=== PATIENT | male | born 1960 | race Caucasian/White ===

== ENCOUNTER 2017-02-09 17:21 | Emergency (ER) | payer SELFPAY ==
[~2017-02-09] VITALS: Ht 182.9 cm; Wt 80.0 kg
[~2017-02-09 17:21] MED LIST: AMOXICILLIN 8751 TAB PO; NORCO 325 MG-7.1 TAB PO
[2017-02-09 17:34] VITALS: TEMP 99
[2017-02-09] MEDS ORDERED: CEPHALEXIN500 M1 PO (18:56)
[2017-02-09] MEDS ORDERED: NORCO 325 MG-51 TAB PO (18:56)
[2017-02-09 18:58] LABS: HEMATOCRIT 44.3 % (42.0-52.0); HEMOGLOBIN 15.1 g/dl (13.5-18.0); MEAN CELL VOLUME 83 fl (80.0-100.0); MEAN CORPUSCULAR HEMOGLOBIN 28 pg (27.0-31.0); MEAN CORPUSCULAR HGB CONC 34 g/dl (33.0-37.0); MEAN PLATELET VOLUME 10.2 fl (7.4-10.4); PLATELET COUNT 268 K/mm3 (130-400); RED BLOOD COUNT 5.36 M/mm3 (4.20-5.60); REDCELL DISTRIBUTION WIDTH-CV 13.2 % (11.5-14.5); WHITE BLOOD COUNT 12.6 K/mm3 (4.8-10.8)
[2017-02-09 18:59] LABS: ADD PATHOLOGY DIFF REVIEW NO
[2017-02-09 19:06] LABS: ADJUSTED CALCIUM 8.1 mg/dL (8.4-10.2); ALBUMIN 4.9 gm/dL (3.5-5.0); CALCIUM 8.8 mg/dL (8.4-10.2); CREATININE, serum 0.64 mg/dL (0.66-1.25); POTASSIUM 3.4 mmol/L (3.4-5.0); TOTAL PROTEIN 8.3 gm/dL (6.4-8.2)
[2017-02-09 19:17] LABS: BAND 3 % (0-10); BASOPHIL 1 % (0-2); NEUTROPHILS 80 % (42.0-75.2); TOTAL CELLS COUNTED 100
[2017-02-09 19:19] LABS: PLATELET ESTIMATE NORMAL (NORMAL)
[2017-02-09 20:17] VITALS: BP 168/78; PULSE 78
== END 2017-02-09 20:20 | disposition home or self-care (01) ==
LOC: COL.ER 17:21
PROVIDERS: Emergency Medicine
DX: S62.391A Other fracture of second metacarpal bone, left hand, initial encounter for closed fracture (principal); S92.425A Nondisplaced fracture of distal phalanx of left great toe, initial encounter for closed fracture; S01.01XA Laceration without foreign body of scalp, initial encounter; S09.90XA Unspecified injury of head, initial encounter; S19.9XXA Unspecified injury of neck, initial encounter; S50.811A Abrasion of right forearm, initial encounter; S80.212A Abrasion, left knee, initial encounter; S80.211A Abrasion, right knee, initial encounter; S90.811A Abrasion, right foot, initial encounter; V28.4XXA Motorcycle driver injured in noncollision transport accident in traffic accident, initial encounter; Z89.022 Acquired absence of left finger(s); Y92.410 Unspecified street and highway as the place of occurrence of the external cause
CPT/HCPCS: J0690; J2405; J3010